=== PATIENT | male | born 1945 | race Caucasian/White ===

== ENCOUNTER 2016-10-25 14:33 | Emergency (ER) | payer MEDICARE, OTHER ==
[~2016-10-25] VITALS: Ht 167.6 cm; Wt 77.3 kg
[2016-10-25] MEDS ORDERED: PRAV10TA39 PO (14:42)
[2016-10-25] MEDS ORDERED: TAMS0.4C32 PO (14:42)
[2016-10-25 15:12] LABS: BASOPHILS % (AUTO) 0.4 % (0.0-2.0); EOSINOPHILS % (AUTO) 1.5 % (1.0-6.0); HEMATOCRIT 46.9 % (41-53); HEMOGLOBIN 15.8 g/dL (13.5-17.5); MEAN CORPUSCULAR HEMOGLOBIN 29.8 pg (26.0-34.0); MEAN CORPUSCULAR HGB CONC 33.6 G/dL (31.0-37.0); MEAN CORPUSCULAR VOLUME 89 fL (80-100); MONOCYTES # (AUTO) 0.6 K/uL (0.1-1.0); MONOCYTES % (AUTO) 4.7 % (2.0-9.0); NEUTROPHILS # (AUTO) 9.6 K/uL (1.8-7.7); NEUTROPHILS % (AUTO) 77.4 % (40.0-70.0); PLATELET COUNT (AUTO) 304 K/uL (150-450); WHITE BLOOD COUNT (AUTO) 12.4 K/uL (4.5-11.0)
[2016-10-25 15:29] LABS: PROTHROMBIN TIME 10.8 SEC (9.4-11.6)
[2016-10-25 15:30] LABS: ANION GAP 10 mmol/L (8-16); CALCIUM, TOTAL 8.9 mg/dL (8.8-10.5); CARBON DIOXIDE 27 mmol/L (22-29); CHLORIDE 101 mmol/L (98-107); CREATININE 0.96 mg/dL (0.60-1.30); GLOMERULAR FILTR. RATE CALC > 60 mL/min (>60); POTASSIUM 4.5 mmol/L (3.5-5.1); SODIUM SERUM 138 mmol/L (136-145); UREA NITROGEN, BLOOD 19 mg/dL (7-18)
[2016-10-25] MEDS ORDERED: LIDOCAINE HCL 1%/EPI 1:200,000/PF 10 ML VIAL INJ ONE (15:30)
[2016-10-25 15:50] LABS: ALANINE AMINOTRANSFERASE 35 U/L (12-78); ALBUMIN 3.7 g/dL (3.4-5.0); ASPARTATE AMINOTRANSFERASE 27 U/L (15-37); BILIRUBIN,TOTAL 0.6 mg/dL (0.1-1.0); CREATINE KINASE, TOTAL 118 U/L (39-308); TOTAL PROTEIN, SERUM 7.5 g/dL (6.4-8.2)
[2016-10-25 16:25] LABS: CREATINE KINASE MB 1.1 ng/mL (0-5)
[2016-10-25 16:43] LABS: ADD UA MICROSCOPIC YES; APPEARANCE,URINE CLOUDY (CLEAR); GLUCOSE, URINE (UA) NEGATIVE (NEGATIVE); KETONES,URINE NEGATIVE (NEGATIVE); LEUKOCYTE ESTERASE ,URINE SMALL (NEGATIVE); OCCULT BLOOD,URINE NEGATIVE (NEGATIVE); PROTEIN,URINE NEGATIVE (NEGATIVE)
[2016-10-25 16:46] LABS: RBC,URINE None Seen /HPF (0-2); SQUAMOUS EPITHELIAL CELL,UR Rare /LPF (None Seen)
[2016-10-25 20:05] VITALS: BP 125/77
== END 2016-10-25 20:09 | disposition home or self-care (01) ==
LOC: EMS 14:40
DX: S01.01XA Laceration without foreign body of scalp, initial encounter (principal); R55 Syncope and collapse; I51.7 Cardiomegaly; M46.92 Unspecified inflammatory spondylopathy, cervical region; E78.00 Pure hypercholesterolemia, unspecified; W19.XXXA Unspecified fall, initial encounter; Y93.89 Activity, other specified; Y92.89 Other specified places as the place of occurrence of the external cause; Y99.8 Other external cause status
CPT/HCPCS: 12002; 36415; 70450; 71010; 72125; 80053; 80307; 81001; 82550; 82553; 83880; 84484; 85025; 85610; 85730; 87086; 93005; 99285; J3490

== ENCOUNTER 2021-08-31 10:28 | Emergency (ER) | payer MEDICARE, MEDICAID ==
[~2021-08-31] VITALS: Ht 162.6 cm; Wt 68.0 kg
[~2021-08-31 10:28] MED LIST: PRAV10TA39 PO; TAMS-13 PO
[2021-08-31] MEDS ORDERED: LEVO75 PO (10:52)
[2021-08-31] MEDS ORDERED: BACLOFEN 10 MG TABLET PO ONE (12:00)
[2021-08-31] MEDS ORDERED: BACL10TA PO (12:28)
[2021-08-31 13:10] VITALS: BP 149/73
== END 2021-08-31 13:32 | disposition home or self-care (01) ==
LOC: EMS 10:28
DX: M79.604 Pain in right leg (principal); E78.00 Pure hypercholesterolemia, unspecified
CPT/HCPCS: 99283